=== PATIENT | female | born 1940 | race Hispanic/Latino ===

== ENCOUNTER 2018-12-17 12:37 | Outpatient (CLI) | payer MEDICARE, OTHER ==
[2018-12-17 13:26] LABS: Hematocrit 39.9 % (30.3-42.9); Hemoglobin 13.6 gm/dl (10.1-14.3); Mean Corpuscular HGB Conc 34 % (30-34); Mean Corpuscular Volume 85 fl (79-97); Platelet Count 201 K/mm3 (140-440); Red Blood Count 4.68 M/mm3 (3.65-5.03)
[2018-12-17 13:35] LABS: Alanine Aminotransferase 27 units/L (7-56); Albumin 4.3 g/dL (3.9-5); BUN/Creatinine Ratio 25; Blood Urea Nitrogen 15 mg/dL (7-17); Calcium 9.7 mg/dL (8.4-10.2); Hemolysis Index 7
[2018-12-21 19:17] LABS: Vitamin D, 25-OH, D2 <4 ng/mL
== END 2018-12-17 12:38 | disposition home or self-care (01) ==
LOC: LAB 12:37
PROVIDERS: ATTEND Specialist
DX: G45.9 Transient cerebral ischemic attack, unspecified (principal)
CPT/HCPCS: 36415; 80053; 82306; 82607; 83921; 85027